=== PATIENT | male | born 1955 | race Caucasian/White ===

== ENCOUNTER 2019-08-06 04:57 | Emergency (ER) | payer MEDICAID ==
[~2019-08-06] VITALS: Ht 170.2 cm; Wt 62.8 kg
[~2019-08-06 04:57] MED LIST: LORA-441 PO; ONDA4TAB14 PO
[2019-08-06 05:01] VITALS: Ht 170.2 cm; Wt 62.8 kg
[2019-08-06] MEDS ORDERED: ONDANSETRON 4 MG INJ IV STA (07:15)
[2019-08-06] MEDS ORDERED: SOD CHLORIDE 0.9% 1,000 ML IV STA (07:15)
[2019-08-06] MEDS ORDERED: LORAZEPAM 2 MG INJ IV STA (07:15)
[2019-08-06 09:58] VITALS: BP 123/69; PULSE 88; RESP 18
== END 2019-08-06 09:58 | disposition home or self-care (01) ==
LOC: E/R 04:57
DX: F10.230 Alcohol dependence with withdrawal, uncomplicated (principal); R40.2142 Coma scale, eyes open, spontaneous, at arrival to emergency department; R40.2252 Coma scale, best verbal response, oriented, at arrival to emergency department; R40.2362 Coma scale, best motor response, obeys commands, at arrival to emergency department
CPT/HCPCS: 36415; 80053; 80307; 85025; 96374; 96375; J2060; J2405; J7030; Z7502